=== PATIENT | male | born 1990 | race Caucasian/White ===

== ENCOUNTER 2018-02-06 11:12 | Observation (INO) ==
[2018-02-06] MEDS: Sod Chloride 0.9% Inj 1,000 ML IV.CONT SCH ×3 (11:57→20:54)
[2018-02-06 12:11] LABS: Baso # (Auto) 0.1 th/mm3 (0.0-0.2); Baso % (Auto) 1.5 % (0.0-2.0); Eos # (Auto) 0.1 th/mm3 (0.0-0.4); Eos % (Auto) 1.4 % (0.0-4.0); Hemoglobin 14.4 gm/dL (13.0-17.0); Lymph # (Auto) 1.2 th/mm3 (1.0-4.8); Lymph % (Auto) 20.9 % (9.0-44.0); Mean Corpuscular HGB Conc 34.2 % (32.0-36.0); Mean Corpuscular Hemoglobin 29.6 pg (27.0-34.0); Mean Corpuscular Volume 86.4 fL (80.0-100.0); Mean Platelet Volume 8.8 fL (7.0-11.0); Mono # (Auto) 0.4 th/mm3 (0.0-0.9); Mono % (Auto) 7.1 % (0.0-8.0); Neut # (Auto) 4.1 th/mm3 (1.8-7.7); Neut % (Auto) 69.1 % (16.0-70.0); Platelet Count 273 th/mm3 (150-450); Red Blood Count 4.87 mil/mm3 (4.50-5.90); Red Cell Distribution Width 12.7 % (11.6-17.2); White Blood Count 5.9 th/mm3 (4.0-11.0)
[2018-02-06 12:36] LABS: Anion Gap 17 meq/L (5-15); Blood Urea Nitrogen 7 mg/dL (7-18); Calcium 8.2 mg/dL (8.5-10.1); Carbon Dioxide 17.5 meq/L (21.0-32.0); Chloride 105 meq/L (98-107); Glomerular Filtration Rate 77 mL/min (>89); Glucose,Random 100 mg/dL (74-106); Magnesium 2.1 mg/dL (1.5-2.5); Potassium 3.9 meq/L (3.5-5.1); Sodium 139 meq/L (136-145)
--- NOTE | 2018-02-06 12:45 | CT ---
EXAM DATE: 02/06/2018 12:36 PM EDT AGE/SEX: 27 years / Male INDICATIONS: seizure today CLINICAL DATA: This is the patient's initial encounter. Patient reports that signs and symptoms have been present for 1 day and indicates a pain score of 0/10. MEDICAL/SURGICAL HISTORY: Seizures. None. RADIATION DOSE: 56.35 CTDI (mGy) COMPARISON: No prior exams available for comparison. TECHNIQUE: CT of the head without contrast. Using automated exposure control and adjustment of the mA and/or kV according to patient size, radiation dose was kept as low as reasonably achievable to ob tain optimal diagnostic quality images. DICOM format image data is available electronically for revi ew and comparison. FINDINGS: Cerebrum: The ventricles are normal for age. No evidence of midline shift, mass lesion, hemorrhage or acute infarction. No extraaxial fluid collections are seen. Posterior Fossa: The cerebellum and brainstem are intact. The 4th ventricle is midline. The cerebe llopontine angle is unremarkable. Extracranial: The visualized portion of the orbits is intact. Retention cysts are seen in the inferi or aspect of both maxillary antra. Skull: The calvaria is intact. No evidence of skull fracture. CONCLUSION: 1. Chronic sinusitis inferiorly in both maxillary antra. 2. Otherwise negative. No acute intracranial process to explain current clinical symptoms. . Electronically signed by: Joey Buitrago MD 02/06/2018 12:44 PM EDT
--- NOTE | 2018-02-06 12:46 | ED ---
HPI General Chief Complaint: Seizure Stated Complaint: Seizures Time Seen by Provider: 02/06/18 11:21 Source: patient Mode of arrival: EMS Limitations: no limitations History of Present Illness HPI Narrative: The patient is 27 years old and arrives to the ER by EMS. He is a student at [employer]. He was in a lecture and felt presyncopal. He left the lecture pedroza and went into the hallway. There he lost consciousness and the next thing he remembers was waking up in an ambulance. The patient has a history of epilepsy. He reports taking antiepileptics for about 6 months however stopped taking them due to nightmares as a side effect. He reports having stopped taking the anti-epileptics about 6 months or so ago and then started taking them again for a short period but again stopped due to nightmares. In case there is no fecal or urinary incontinence. He reports this to be the first seizure event since he stopped taking the antiepileptics. He reports drinking about 6 bottles of beer last night and smoking some cigarettes. He also reports a fight with his girlfriend. He denies drug abuse. In the ER he complains of headache. There is no available record of the type of seizure activity observed. MD complaint: Reports seizure Onset (ago): minute(s) Description of Episode: Reports loss of consciousness; Denies bladder incontinence and bowel incontinence -: minutes(s) Trauma: No Seizure History: Reports known seizure disorder Place: school Possible Precipitating Event: Reports alcohol withdrawal and lack of sleep Associated symptoms: Reports other (Headache) Related Data Home Medications Medication Instructions Recorded Confirmed No Known Home Medications 02/06/18 02/06/18 Previous Rx's Medication Instructions Recorded levetiracetam [Keppra] 500 mg PO BID #60 tab 02/07/18 Allergies Allergy/AdvReac Type Severity Reaction Status Date / Time amoxicillin Allergy Hives Verified 02/06/18 11:25 Review of Systems ROS: all other systems reviewed are negative [facility] Medical History Medical History Seizures (Acute) Surgical History Surgical History No history of previous surgery (Acute) Family History Family History Other Hypertension Social History Social History Substance History: No History of Abuse Second Hand Smoke Exposure: Yes Smoking Status: Current every day smoker Tobacco Type: Cigarettes How Often Do You Have a Drink Containing Alcohol: 2 to 3 times a week Recent Travel in [facility] within the Last 8 Weeks: No Recent Out of Country Travel within the Last 8 Weeks: No Immunization History Tetanus Immunization: >5 Years Exam Narrative Exam Narrative: GENERAL: 27-year-old male well-nourished well-developed pleasant no acute distress speaking full sentences SKIN: Focused skin assessment warm/dry. HEAD: Atraumatic. Normocephalic. EYES: Pupils equal and round. No scleral icterus. No injection or drainage. ENT: No nasal bleeding or discharge. Mucous membranes pink and moist. NECK: Trachea midline. No JVD. CARDIOVASCULAR: Regular rate and rhythm. No murmur appreciated. RESPIRATORY: No accessory muscle use. Clear to auscultation. Breath sounds equal bilaterally. GASTROINTESTINAL: Abdomen soft, non-tender, nondistended. Hepatic and splenic margins not palpable. MUSCULOSKELETAL: No obvious deformities. No clubbing. No cyanosis. No edema. NEUROLOGICAL: Awake and alert. No obvious cranial nerve deficits. Motor grossly within normal limits. Normal speech. PSYCHIATRIC: Appropriate mood and affect; insight and judgment normal. Course Initial Documented Vital Signs Temperature 98.9 F 02/06/18 11:15 Pulse Rate 93 H 02/06/18 11:15 Respiratory Rate 20 02/06/18 11:15 Blood Pressure 144/67 H 02/06/18 11:15 Pulse Oximetry 99 02/06/18 11:15 Last Documented Vital Signs Temperature 98.4 F 02/07/18 12:00 Pulse Rate 67 02/07/18 12:00 Respiratory Rate 16 02/07/18 12:00 Blood Pressure 113/65 02/07/18 12:00 Pulse Oximetry 98 02/07/18 12:00 Medical Decision Making [facility] Narrative Medical decision making narrative: Patient had a prolonged loss of consciousness in association with a seizure episode. He has a known diagnosis of epilepsy. Workup today including blood work and CT imaging is unremarkable. Case discussed with hospitalist service for further evaluation. Medical Screen Exam Complete: Yes Emergency Medical Condition: Yes Differential Diagnosis Differential Diagnosis: Seizure, tremors, electrolyte imbalance, intracranial injury Lab Data Lab results reviewed: Yes I reviewed the patient's lab results. Result diagrams: 02/07/18 08:07 02/07/18 08:07 Lab Results 02/06/18 02/06/18 02/07/18 Range/Units 11:50 11:50 08:07 WBC 5.9 6.2 (4.0-11.0) th/mm3 RBC 4.87 4.58 (4.50-5.90) mil/mm3 Hgb 14.4 13.6 (13.0-17.0) gm/dL Hct 42.0 39.3 (39.0-51.0) % MCV 86.4 85.9 (80.0-100.0) fL MCH 29.6 29.7 (27.0-34.0) pg MCHC 34.2 34.5 (32.0-36.0) % RDW 12.7 12.9 (11.6-17.2) % Plt Count 273 244 (150-450) th/mm3 MPV 8.8 8.4 (7.0-11.0) fL Neut % (Auto) 69.1 57.1 (16.0-70.0) % Lymph % (Auto) 20.9 30.9 (9.0-44.0) % [place] % (Auto) 7.1 8.8 H (0.0-8.0) % Eos % (Auto) 1.4 1.9 (0.0-4.0) % Baso % (Auto) 1.5 1.3 (0.0-2.0) % Neut # (Auto) 4.1 3.5 (1.8-7.7) th/mm3 Lymph # (Auto) 1.2 1.9 (1.0-4.8) th/mm3 [place] # (Auto) 0.4 0.5 (0.0-0.9) th/mm3 Eos # (Auto) 0.1 0.1 (0.0-0.4) th/mm3 Baso # (Auto) 0.1 0.1 (0.0-0.2) th/mm3 WBC Differential . . Differential Comment Auto diff final Auto diff final Sodium 139 (136-145) meq/L Potassium 3.9 (3.5-5.1) meq/L Chloride 105 (98-107) meq/L Carbon Dioxide 17.5 L (21.0-32.0) meq/L Anion Gap 17 H (5-15) meq/L BUN 7 (7-18) mg/dL Creatinine 1.15 (0.60-1.30) mg/dL Estimated GFR 77 L (>89) mL/min Random Glucose 100 (74-106) mg/dL Calcium 8.2 L (8.5-10.1) mg/dL Magnesium 2.1 (1.5-2.5) mg/dL Total Bilirubin (0.2-1.0) mg/dL AST (15-37) U/L ALT (12-78) U/L Alkaline Phosphatase (45-117) U/L Total Protein (6.4-8.2) g/dL Albumin (3.4-5.0) g/dL Serum Alcohol Less than 3 (0-5) mg/dL 02/07/18 Range/Units 08:07 WBC (4.0-11.0) th/mm3 RBC (4.50-5.90) mil/mm3 Hgb (13.0-17.0) gm/dL Hct (39.0-51.0) % MCV (80.0-100.0) fL MCH (27.0-34.0) pg MCHC (32.0-36.0) % RDW (11.6-17.2) % Plt Count (150-450) th/mm3 MPV (7.0-11.0) fL Neut % (Auto) (16.0-70.0) % Lymph % (Auto) (9.0-44.0) % [place] % (Auto) (0.0-8.0) % Eos % (Auto) (0.0-4.0) % Baso % (Auto) (0.0-2.0) % Neut # (Auto) (1.8-7.7) th/mm3 Lymph # (Auto) (1.0-4.8) th/mm3 [place] # (Auto) (0.0-0.9) th/mm3 Eos # (Auto) (0.0-0.4) th/mm3 Baso # (Auto) (0.0-0.2) th/mm3 WBC Differential Differential Comment Sodium 142 (136-145) meq/L Potassium 3.8 (3.5-5.1) meq/L Chloride 111 H (98-107) meq/L Carbon Dioxide 23.2 (21.0-32.0) meq/L Anion Gap 8 (5-15) meq/L BUN 6 L (7-18) mg/dL Creatinine 0.90 (0.60-1.30) mg/dL Estimated GFR Greater than 89 (>89) mL/min Random Glucose 80 (74-106) mg/dL Calcium 8.1 L (8.5-10.1) mg/dL Magnesium (1.5-2.5) mg/dL Total Bilirubin 0.4 (0.2-1.0) mg/dL AST 28 (15-37) U/L ALT 23 (12-78) U/L Alkaline Phosphatase 54 (45-117) U/L Total Protein 6.2 L (6.4-8.2) g/dL Albumin 3.2 L (3.4-5.0) g/dL Serum Alcohol (0-5) mg/dL Imaging Data Radiologist's impression: Head MRI 02/06/18 00:00 CONCLUSION: 1. No acute intracranial abnormality. 2. Extensive bilateral maxillary sinus disease. Head CT 02/06/18 11:49 CONCLUSION: 1. Chronic sinusitis inferiorly in both maxillary antra. 2. Otherwise negative. No acute intracranial process to explain current clinical symptoms. . Discharge Plan Discharge Disposition Patient Disposition: Discharge Home Discharge Condition Condition: Stable Discharge Order Discharge Orders: Discharge Order (Routine); Ordered 02/07/18 Ordered By: Dionne Michelle Discharge Details Anticipated Discharge Date: 02/07/18 Physicians Team ED Provider: Carlo Kearney Primary Care Provider: [facility] Attending Provider: Dionne Michelle Other Providers: Sasha Fleming Status ED Status: Left Department Discharge Information Discharge Date/Time: 02/06/18 13:41
[2018-02-06] MEDS ORDERED: Acetaminophen 500 MG Tablet PO ONE (13:23)
[2018-02-06] MEDS ORDERED: Acetaminophen 325 MG Tablet PO PRN (13:59)
--- NOTE | 2018-02-06 14:55 | P.HP ---
History of Present Illness Primary Care Physician: [facility] Chief Complaint: Seizure activity History of Present Illness: 27-year-old man with a past medical history of seizure disorder was brought to the ED for evaluation of breakthrough seizure, which occurred today around 9:45 AM while patient was at school. Patient states he was previously on AED, however about a year ago he decided to stop taking his med secondary to nightmares as a side effect. He reported his last seizure activity four months ago. Although patient has no recollection of what happened today, however states he was having some twitching and spasm of the whole body. He was brought to the ED and was postictal. Currently has no chest pain, shortness of breath. He reported drinking a few beers the night before. Although patient smokes 1-2 cigarettes/day however denies any marijuana use. He has no upper respiratory infections. - Diagnosis (1) Breakthrough seizure Review of Systems All other systems reviewed negative except as stated in HPI PMFSH - History History Provided By: Patient - Medical History Medical History: Medical History (Last Updated 02/06/18 @ 11:21 by Sherie Gross RN) Seizures - Surgical History Surgical History: Surgical History (Last Updated 02/06/18 @ 11:21 by Sherie Gross RN) No history of previous surgery - Family History Family History: Family History (Last Updated 02/06/18 @ 14:51 by Jamie Ohara MD) Other Hypertension - Tobacco History Second Hand Smoke Exposure: Yes Tobacco Use In Past 30 Days: Yes Smoking Status: Current every day smoker Tobacco Type: Cigarettes - Alcohol History How Often Do You Have a Drink Containing Alcohol: 2 to 3 times a week - Substance Use History Substance History: No History of Abuse - Travel History Recent Travel in the [place] Within the Last 8 Weeks: No Recent Travel Out of the Country Within the Last 8 Weeks: No - Immunization History Tetanus Immunization: >5 Years Medications and Allergies Active Medications: Active Medications Acetaminophen (Tylenol) 650 mg PO Q4H PRN PRN Reason: Temp > 100.4 Al Hydroxide/Mg Hydroxide (Milk Of Magnesia Liq) 30 ml PO Q12H PRN PRN Reason: Mild Constipation Sodium Chloride (Ns Inj) 1,000 mls @ 125 mls/hr IV.CONT .Q8H [facility] Last Admin: 02/06/18 11:57 Dose: 125 mls/hr Lorazepam (Ativan Inj) 2 mg IV.PUSH Q4H PRN PRN Reason: SEIZURES Ondansetron HCl (Zofran Inj) 4 mg IV.PUSH Q6H PRN PRN Reason: NAUSEA OR VOMITING Sodium Chloride (Ns Flush) 2 ml IV.FLUSH PRN PRN PRN Reason: FLUSH AFTER USING IV ACCESS Allergies Allergy/AdvReac Type Severity Reaction Status Date / Time amoxicillin Allergy Hives Verified 02/06/18 11:25 Home Medications Medication Instructions Recorded Confirmed Type No Known Home Medications 02/06/18 02/06/18 History Exam Vital signs: Vital Signs 02/06/18 11:15 02/06/18 11:30 02/06/18 11:56 Temperature 98.9 F Pulse Rate 93 H Respiratory Rate 20 Blood Pressure 144/67 H Pulse Oximetry 99 100 100 02/06/18 11:57 02/06/18 12:00 Temperature Pulse Rate 87 83 Respiratory Rate 20 Blood Pressure 130/78 Pulse Oximetry 99 100 Intake & Output 02/05/18 02/06/18 02/06/18 18:59 06:59 18:59 Weight 72.575 kg Other: Weight On Admission 72.575 kg Narrative: GENERAL: NAD SKIN: Warm and dry. HEAD: Atraumatic. Normocephalic. EYES: Pupils equal and round. No scleral icterus. No injection or drainage. ENT: No nasal bleeding or discharge. Mucous membranes pink and moist. NECK: Trachea midline. No JVD. CARDIOVASCULAR: Regular rate and rhythm. RESPIRATORY: No accessory muscle use. Clear to auscultation. Breath sounds equal bilaterally. GASTROINTESTINAL: Abdomen soft, non-tender, nondistended. Hepatic and splenic margins not palpable. MUSCULOSKELETAL: Extremities without clubbing, cyanosis, or edema. No obvious deformities. NEUROLOGICAL: Awake and alert. No obvious cranial nerve deficits. Motor grossly within normal limits. Five out of 5 muscle strength in the arms and legs. Normal speech. PSYCHIATRIC: Appropriate mood and affect; insight and judgment normal. Results - Labs CBC & Chem 7: 02/07/18 08:07 02/07/18 08:07 Labs: Laboratory Results - last 24 hr 02/06/18 02/06/18 11:50 11:50 WBC 5.9 RBC 4.87 Hgb 14.4 Hct 42.0 MCV 86.4 MCH 29.6 MCHC 34.2 RDW 12.7 Plt Count 273 MPV 8.8 Neut % (Auto) 69.1 Lymph % (Auto) 20.9 [place] % (Auto) 7.1 Eos % (Auto) 1.4 Baso % (Auto) 1.5 Neut # (Auto) 4.1 Lymph # (Auto) 1.2 [place] # (Auto) 0.4 Eos # (Auto) 0.1 Baso # (Auto) 0.1 WBC Differential . Differential Comment Auto diff final Sodium 139 Potassium 3.9 Chloride 105 Carbon Dioxide 17.5 L Anion Gap 17 H BUN 7 Creatinine 1.15 Estimated GFR 77 L Random Glucose 100 Calcium 8.2 L Magnesium 2.1 Serum Alcohol Less than 3 - Imaging Impressions Head CT 02/06/18 11:49 CONCLUSION: 1. Chronic sinusitis inferiorly in both maxillary antra. 2. Otherwise negative. No acute intracranial process to explain current clinical symptoms. . Caprini VTE Risk Assessment Caprini VTE Risk Assessment: No/Low Risk (score <= 1) Caprini Risk Assessment Model: Point Value = 1 Point Value = 2 Point Value = 3 Point Value = 5 Age 41-60 Minor surgery BMI > 25 kg/m2 Swollen legs Varicose veins or History of unexplained or recurrent spontaneous Oral contraceptives or hormone replacement Sepsis (< 1 month) Serious lung disease, including pneumonia (< 1 month) Abnormal pulmonary function Acute myocardial infarction Congestive heart failure (< 1 month) History of inflammatory bowel disease Medical patient at bed rest Age 61-74 Arthroscopic surgery Major open surgery (> 45 min) Laparoscopic surgery (> 45 min) Malignancy Confined to bed (> 72 hours) Immobilizing plaster cast Central venous access Age >= 75 History of VTE Family history of VTE Factor V Leiden Prothrombin [id number] Lupus anticoagulant Anticardiolipin antibodies Elevated serum homocysteine Heparin-induced thrombocytopenia Other congenital or acquired thrombophilia Stroke (< 1 month) Elective arthroplasty Hip, pelvis, or leg fracture Acute spinal cord injury (< 1 month) Prophylaxis Regimen: Total Risk Factor Score Risk Level Prophylaxis Regimen 0-1 Low Early ambulation 2 Moderate Order ONE of the following: *Sequential Compression Device (SCD) *Heparin 5000 units SQ BID 3-4 Higher Order ONE of the following medications: *Heparin 5000 units SQ TID *Enoxaparin/Lovenox 40 mg SQ daily (WT < 150 kg, CrCl > 30 mL/min) *Enoxaparin/Lovenox 30 mg SQ daily (WT < 150 kg, CrCl > 10-29 mL/min) *Enoxaparin/Lovenox 30 mg SQ BID (WT < 150 kg, CrCl > 30 mL/min) AND/OR *Sequential Compression Device (SCD) 5 or more Highest Order ONE of the following medications: *Heparin 5000 units SQ TID (Preferred with Epidurals) *Enoxaparin/Lovenox 40 mg SQ daily (WT < 150 kg, CrCl > 30 mL/min) *Enoxaparin/Lovenox 30 mg SQ daily (WT < 150 kg, CrCl > 10-29 mL/min) *Enoxaparin/Lovenox 30 mg SQ BID (WT < 150 kg, CrCl > 30 mL/min) AND *Sequential Compression Device (SCD) Assessment and Plan - Assessment (1) Breakthrough seizure Code(s): G40.919 - Epilepsy, unspecified, intractable, without status epilepticus Status: Acute - Plan 27-year-old man with Breakthrough seizure Head CT noted and reviewed by me without any intracranial abnormalities Check EEG Hold on starting AED until patient seen by neurology Ativan as needed for seizure prophylaxis Metabolic acidosis Secondary to above start NS with Sodium bicarb as needed if no improvement in a.m. DVT prophylaxis: low risk for VTE
[2018-02-06 16:14] VITALS: O2SAT 98
--- NOTE | 2018-02-06 19:06 | MR ---
EXAM DATE: 02/06/2018 6:23 PM EDT AGE/SEX: 27 years / Male INDICATIONS: Seizures. CLINICAL DATA: This is the patient's subsequent encounter. Patient reports that signs and symptoms h ave been present for 1 day and indicates a pain score of 0/10. MEDICAL/SURGICAL HISTORY: Seizures. None. COMPARISON: No prior exams available for comparison. TECHNIQUE: Multiplanar, multisequence examination of the brain was performed without and with 7 ml Ga davist (gadobutrol) contrast as a single exam dose. FINDINGS: Cerebrum: The ventricles are normal for age. No evidence of midline shift, mass lesion, hemorrhage or acute infarction. No extraaxial fluid collections are seen. The pituitary gland and suprasellar cistern are normal in configuration. White Matter: No significant signal abnormalities are seen in the white matter. Posterior Fossa: The cerebellum and brainstem are intact. The 4th ventricle is midline. The cerebel lopontine angle is unremarkable. The cerebellar tonsils are normal in position. Diffusion Imaging: No focal areas of restricted diffusion are seen. No evidence of acute infarction . Extracranial: The visualized portions of the orbits and paranasal sinuses are unremarkable. Extensiv e bilateral maxillary sinus disease. Post Contrast: No abnormal areas of parenchymal or dural enhancement. No evidence of blood-brain ba rrier breakdown. CONCLUSION: 1. No acute intracranial abnormality. 2. Extensive bilateral maxillary sinus disease. Electronically signed by: Jamie Pereira MD 02/06/2018 7:04 PM EDT
--- NOTE | 2018-02-06 20:34 | MB ---
cc: Sasha Fleming MD DATE: 02/06/2018 REASON FOR CONSULTATION: Seizure. 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 Diagnosed in [place] with seizures placed on Depakote, but has not taken in the last year because it made him feel funny, having nightmares. Today, he was in class when he started to get his usual feeling where something would start spasming, felt like it was spasming from his leg up, and then started having uncontrolled shaking. He has really no recollection afterwards of what happened, but he denied biting his tongue or losing urine. He was postictal. There were some drinks the night before. He smokes a couple of cigarettes a day, but no drug use, per history. He states he has never had any head trauma or HEALTH DIRECTOR infections and there is no family history of epilepsy. This would be his third seizure, per patient. PAST MEDICAL HISTORY: Epilepsy, possibly. PAST SURGICAL HISTORY: None. FAMILY HISTORY: Hypertension. SOCIAL HISTORY: Still he smokes a few cigarettes a day; 2-3 times a week drinks beer. MEDICATIONS: No home medications. PHYSICAL EXAMINATION: VITAL SIGNS: Temperature 98.2, pulse 67, respiratory rate 16, blood pressure 128/64, saturating at 98% on 2 liters. GENERAL: He is awake and alert. NEUROLOGIC: He is oriented and fluent. Pupils reactive. Face symmetrical. Tongue midline. Motor does not have any lateralizing weakness. No drift or leg lag. Gait is withheld at this time. LABORATORY DATA: Reviewed. His CBC is normal. Chemistry CO2 17.5, GFR 77, calcium 8.2. Tox screen and serum alcohol less than 3. He did have a CT of the head performed that showed chronic sinusitis inferiorly in both maxillary antrum, otherwise negative. ASSESSMENT AND PLAN: A 27-year-old male with a history of epilepsy diagnosed in [place]. Recommend starting him on Keppra 500 mg b.i.d. Side effects discussed and he can always follow up in the office in the event that he does not tolerate it. We will get an MRI of the brain. He states an EEG was already completed. Maintain seizure precautions. Ativan should be used if he has a prolonged witnessed seizure and, if he is doing well, discharge planning; however, per [place] law, no driving for 6 months. He is also advised not to swim alone, not to climb ladders or heights. Continue current recommendations. Hopefully, discharge planning tomorrow if everything comes back normal and he is stable. MD ROMULO Laguna/lola , 05:28 PM , 05:36 PM
[2018-02-06] MEDS: levETIRAcetam 500 MG Tablet PO SCH (20:53)
[2018-02-06] MEDS ORDERED: Gadobutrol PF 7.5 MMOL/7.5 ML Vial (for RAD) IV.SIG ONE (21:04)
--- NOTE | 2018-02-06 21:13 | MG ---
cc: Delroy Cornejo MD EEG# INDICATION: A 27-year-old man with history of seizures since 2015. MEDICATION: Tylenol DESCRIPTION: Recording shows bifrontal predominant spike wave high amplitude, sometimes is polyspike looking at about 5 Hz on a background of diffuse 8 Hz, 60 microvolt symmetric posterior rhythm. The spikes are seen fairly frequently and are consistent with a primary generalized seizure disorder. He has a run of lasting about 4 seconds and Epoch of 44 at about 4 Hz. There are no hemisphere asymmetries. Photic stimulation was performed without significant posterior driving. Hyperventilation was not performed. IMPRESSION: Very frequent sometimes lasting bursts up to 4 seconds of bifrontal spike wave high amplitude up to 4-5 Hz consistent with a primary generalized seizure disorder. Clinical correlation is needed. Delroy Cornejo MD DJM/floyd , 05:58 PM , 06:04 PM
[2018-02-07] MEDS: Sod Chloride 0.9% Inj 1,000 ML IV.CONT SCH ×3 (03:23→12:47)
[2018-02-07 03:33] VITALS: RESP 16
[2018-02-07 08:45] LABS: Baso # (Auto) 0.1 th/mm3 (0.0-0.2); Baso % (Auto) 1.3 % (0.0-2.0); Eos # (Auto) 0.1 th/mm3 (0.0-0.4); Eos % (Auto) 1.9 % (0.0-4.0); Hematocrit 39.3 % (39.0-51.0); Hemoglobin 13.6 gm/dL (13.0-17.0); Lymph # (Auto) 1.9 th/mm3 (1.0-4.8); Lymph % (Auto) 30.9 % (9.0-44.0); Mean Corpuscular HGB Conc 34.5 % (32.0-36.0); Mean Corpuscular Hemoglobin 29.7 pg (27.0-34.0); Mean Corpuscular Volume 85.9 fL (80.0-100.0); Mean Platelet Volume 8.4 fL (7.0-11.0); Mono # (Auto) 0.5 th/mm3 (0.0-0.9); Mono % (Auto) 8.8 % (0.0-8.0); Neut # (Auto) 3.5 th/mm3 (1.8-7.7); Neut % (Auto) 57.1 % (16.0-70.0); Platelet Count 244 th/mm3 (150-450); Red Blood Count 4.58 mil/mm3 (4.50-5.90); Red Cell Distribution Width 12.9 % (11.6-17.2); White Blood Count 6.2 th/mm3 (4.0-11.0)
[2018-02-07] MEDS: levETIRAcetam 500 MG Tablet PO SCH (09:01)
[2018-02-07 09:06] LABS: Albumin 3.2 g/dL (3.4-5.0); Anion Gap 8 meq/L (5-15); Aspartate Aminotransferase 28 U/L (15-37); Blood Urea Nitrogen 6 mg/dL (7-18); Calcium 8.1 mg/dL (8.5-10.1); Carbon Dioxide 23.2 meq/L (21.0-32.0); Chloride 111 meq/L (98-107); Glomerular Filtration Rate Greater Than 89 mL/min (>89); Glucose,Random 80 mg/dL (74-106); Potassium 3.8 meq/L (3.5-5.1); Sodium 142 meq/L (136-145)
[2018-02-07 09:07] LABS: Alanine Aminotransferase 23 U/L (12-78)
[2018-02-07 09:09] LABS: Alkaline Phosphatase 54 U/L (45-117); Total Protein 6.2 g/dL (6.4-8.2)
[2018-02-07 12:18] VITALS: BP 113/65; PULSE 67; TEMP 98.4
--- NOTE | 2018-02-07 13:53 | P.DS ---
Date of admission: 02/06/18 13:23 Primary care physician: [facility] Brief History from admission: 27-year-old man with a past medical history of seizure disorder was brought to the ED for evaluation of breakthrough seizure, which occurred today around 9:45 AM while patient was at school. Patient states he was previously on AED, however about a year ago he decided to stop taking his med secondary to nightmares as a side effect. He reported his last seizure activity for months ago. Although patient has no recollection of what happened today, however states he was having some twitching and spasm of the whole body. He was brought to the ED and was postictal. Currently has no chest pain, shortness of breath. He reported drinking a few beers the night before. Although patient smokes 1-2 cigarettes/day however denies any marijuana use. He has no upper respiratory infections. DS: Diagnosis - Discharge Diagnosis (1) Breakthrough seizure Status: Acute DS: Medications - Discharge Medications Prescriptions: levetiracetam [Keppra] 500 mg PO BID #60 tab DS: Summary Hospital Course: 27-year-old man with breakthrough seizures. Patient had seizures before and was taking medications however medication has stopped and he is not on any meds for the past 3 years. Patient with breakthrough seizure. Head CT noted and reviewed by me without any intracranial abnormalities EEG reviewed findings consistent with with generalized seizures. Patient also had MRI which showed sinusitis but no other abnormalities. Advised patient to follow-up with PCP in if needed with ENT as outpatient. Ativan as needed for seizure prophylaxis, however patient did not receive any Ativan as he has been seizure free Metabolic acidosis secondary to seizures, resolved with NS with Sodium bicarb The patient improved significantly. Discharge home in stable condition to follow-up with PCP and consultants as outpatient. Patient was instructed not to drive until cleared by neurology. Instructions at discharge given and discussed with the patient in length discharge plan. - Time Spent with Patient Total time spent providing and/or coordinating discharge services: Greater than 30 minutes - Quality: VTE Deep Vein Thrombosis/Pulmonary Embolism Present on Admission: No Exam Vital signs: Vital Signs 02/06/18 15:30 02/06/18 16:00 02/06/18 20:00 Temperature 98.2 F 98.0 F Pulse Rate 66 67 69 Respiratory Rate 16 16 Blood Pressure 128/64 114/65 Pulse Oximetry 98 98 02/07/18 00:00 02/07/18 03:32 02/07/18 08:00 Temperature 98.2 F 97.5 F L 97.7 F Pulse Rate 55 L 57 L 54 L Respiratory Rate 14 16 16 Blood Pressure 110/60 106/66 112/66 Pulse Oximetry 98 98 98 02/07/18 12:00 Temperature 98.4 F Pulse Rate 67 Respiratory Rate 16 Blood Pressure 113/65 Pulse Oximetry 98 Intake & Output 02/06/18 02/07/18 02/07/18 18:59 06:59 18:59 Intake Total 1000 / 1000 1959 / 1959 1000 / 1000 Output Total 600 / 600 Balance 400 / 400 1959 / 1959 1000 / 1000 Weight 72.575 kg 72.575 kg Intake: IV 1000 / 1000 1000 / 1000 1000 / 1000 NS Inj 1,000 ML @ 125 mls/hr IV 1000 / 1000 1000 / 1000 1000 / 1000 .CONT .Q8H MÓNICA Rx#:[id number] Oral 960 / 960 Output: Urine 600 / 600 Other: # Voids 4 1 Weight On Admission 72.575 kg Narrative: GENERAL: NAD SKIN: Warm and dry. HEAD: Atraumatic. Normocephalic. EYES: Pupils equal and round. No scleral icterus. No injection or drainage. ENT: No nasal bleeding or discharge. Mucous membranes pink and moist. NECK: Trachea midline. No JVD. CARDIOVASCULAR: Regular rate and rhythm. RESPIRATORY: No accessory muscle use. Clear to auscultation. Breath sounds equal bilaterally. GASTROINTESTINAL: Abdomen soft, non-tender, nondistended. Hepatic and splenic margins not palpable. MUSCULOSKELETAL: Extremities without clubbing, cyanosis, or edema. No obvious deformities. NEUROLOGICAL: Awake and alert. No obvious cranial nerve deficits. Motor grossly within normal limits. Five out of 5 muscle strength in the arms and legs. Normal speech. Results Procedures completed during hospitalization: no procedures Labs on day of discharge: Labs from last 24 hours 02/07/18 02/07/18 08:07 08:07 WBC 6.2 RBC 4.58 Hgb 13.6 Hct 39.3 MCV 85.9 MCH 29.7 MCHC 34.5 RDW 12.9 Plt Count 244 MPV 8.4 Neut % (Auto) 57.1 Lymph % (Auto) 30.9 [place] % (Auto) 8.8 H Eos % (Auto) 1.9 Baso % (Auto) 1.3 Neut # (Auto) 3.5 Lymph # (Auto) 1.9 [place] # (Auto) 0.5 Eos # (Auto) 0.1 Baso # (Auto) 0.1 WBC Differential . Differential Comment Auto diff final Sodium 142 Potassium 3.8 Chloride 111 H Carbon Dioxide 23.2 Anion Gap 8 BUN 6 L Creatinine 0.90 Estimated GFR Greater than 89 Random Glucose 80 Calcium 8.1 L Total Bilirubin 0.4 AST 28 ALT 23 Alkaline Phosphatase 54 Total Protein 6.2 L Albumin 3.2 L - Impressions ITS Impressions Head MRI 02/06/18 00:00 CONCLUSION: 1. No acute intracranial abnormality. 2. Extensive bilateral maxillary sinus disease. Head CT 02/06/18 11:49 CONCLUSION: 1. Chronic sinusitis inferiorly in both maxillary antra. 2. Otherwise negative. No acute intracranial process to explain current clinical symptoms. . Discharge Plan - Discharge Disposition Patient Disposition: 01 Discharge Home - Discharge Condition Condition: Stable - Discharge Order Discharge Orders: Discharge Order (Routine); Ordered 02/07/18 Ordered By: Dionne Mihcelle - Discharge Details Anticipated Discharge Date: 02/07/18 - Physicians Team Primary Care Provider: [facility] Attending Provider: Dionne Michelle Other Providers: Sasha Fleming MD
== END 2018-02-07 16:40 | disposition home or self-care (01) ==
LOC: NEDA 11:12 → NEPE 11:12 → NEDA 13:41 → NEPFCDU 13:44
PROVIDERS: ADMIT Hospitalist; ATTEND Hospitalist